=== PATIENT | male | born 1990 | race Caucasian/White ===

== ENCOUNTER 2018-05-27 12:31 | Emergency (ER) | payer SELFPAY ==
[~2018-05-27] VITALS: Ht 185.4 cm; Wt 66.8 kg
[~2018-05-27 12:31] MED LIST: NO MEDS
[2018-05-27 12:42] VITALS: BP 131/67
== END 2018-05-27 13:46 | disposition home or self-care (01) ==
LOC: ED 13:15
DX: Z00.00 Encounter for general adult medical examination without abnormal findings (principal)
CPT/HCPCS: 99281